=== PATIENT | male | born 1950 | race Caucasian/White ===

== ENCOUNTER → 2019-06-13 | Outpatient (CLI) | payer MEDICARE, OTHER | LOC: M.MRI 13:14 | DX: S83.282A Other tear of lateral meniscus, current injury, left knee, initial encounter (principal); M17.11 Unilateral primary osteoarthritis, right knee; M71.21 Synovial cyst of popliteal space [Baker], right knee; X58.XXXA Exposure to other specified factors, initial encounter; Y93.89 Activity, other specified; Y92.89 Other specified places as the place of occurrence of the external cause; Y99.8 Other external cause status ==

== ENCOUNTER 2019-07-16 09:58 | Inpatient (IN) | payer MEDICARE, OTHER ==
[2019-07-04 09:07] LABS: HEMATOCRIT 43.6 % (42.0-52.0); HEMOGLOBIN 15.1 gm/dL (14.0-18.0); MCH 31.9 pg (26.0-34.0); MCHC 34.7 g/dL (28.0-37.0); MCV 92.1 fL (80.0-100.0); MPV 9.2 fl. (7.2-11.1); RBC 4.74 mil/uL (4.50-6.00); RDW-CV 13.3 % (10.5-14.5); WBC 8.4 thou/uL (4.0-11.0)
[2019-07-04 09:09] LABS: URINE BILIRUBIN NEGATIVE (Negative); URINE BLOOD NEGATIVE (Negative); URINE CLARITY CLEAR; URINE COLOR YELLOW; URINE GLUCOSE-RANDOM NEGATIVE (Negative); URINE KETONES NEGATIVE (Negative); URINE PROTEIN NEGATIVE (Negative); URINE UROBILINOGEN 0.2 E.U./dl (0.2-1.0)
[2019-07-04 09:14] LABS: URINE LEUKOCYTES-REFLEX 2+ (Negative); URINE NITRITE-REFLEX POSITIVE (Negative)
[2019-07-04 09:22] LABS: ALBUMIN 3.7 g/dL (3.4-5.0); CALCIUM 8.9 mg/dL (8.5-10.1); CREATININE 1.2 mg/dL (0.6-1.3); PROTIME 10.5 Seconds (9.20-11.50); TOTAL BILIRUBIN 0.6 mg/dL (<0.1-1.0); TOTAL PROTEIN 7.6 g/dL (6.4-8.2)
[2019-07-04 09:23] LABS: BACTERIA-REFLEX >30 Many /HPF (None Seen); CASTS None Seen /LPF (None Seen); CRYSTALS None Seen /LPF (None Seen); MUCUS 0-3 Light strn/LPF (None Seen); SQUAMOUS 0-3 Few /LPF (0-3); URINE RBC 0-2 Rare /HPF (0-2)
--- NOTE | 2019-07-04 12:38 | EKG ---
[place] [address] ELECTROCARDIOGRAM REPORT Name: ANIBAL CHAIDEZ Room: [facility]#: [id number] Admission: Attend Phys: Adrian Best Discharge: Date of : 46 Report #: [id number] THIS REPORT FOR: //name// [facility] Test Date: 2019-07-04 Test Time: 09:38:27 Pat Name: ANIBAL CHAIDEZ Department: Room: Gender: M Regulatory Compliance Director: : 1950 Requested By: Roney Limon Order Number: [id number] Reading MD: Rudi Avila Measurements Intervals [place] Rate: 56 P: -8 OK: 204 QRS: -43 QRSD: 94 T: 48 QT: 428 QTc: 414 Interpretive Statements Sinus rhythm Left anterior fascicular block No previous ECG available for comparison Electronically Signed On 07-04-2019 12:37:53 [employer]INE[employer] by Rudi Avila [email or web address] <ELECTRONICALLY SIGNED> By: Rudi Avila MD, [facility] 07/04/19 1237 [id number] [id number] Rudi Avila MD, FACC /EPI
[~2019-07-16] VITALS: Ht 185.4 cm; Wt 114.8 kg
[~2019-07-16 09:58] MED LIST: AMLODIPINE-BEN1 EAC2 PO; ASPIR 8181 M1 PO; INDOMETHACIN 5050 M1 PO; ROSUVASTATIN CA20 MG PO; ZANTAC 150MG T150 M1 PO
[2019-07-16 11:13] VITALS: BP 144/75
--- NOTE | 2019-07-16 11:20 | NUR ---
Pt arrived to pre-op and told nurse of having new flair up of gout in Right ankle. He is scheduled for right total knee surg. Great toe is red and swollen, and swelling over right inner ankle with redness. Pt has low grade temp of 99.2. Consulted with Surg DR. Limon. came and assesed area and is okay to preceed with surgery.
[2019-07-16 17:20] VITALS: BP 133/60
[2019-07-16 21:00] VITALS: BP 122/58
--- NOTE | 2019-07-16 21:55 | NUR ---
PATIENT ARRIVED FROM SURGERY AT 1700. HE HAD A RIGHT TOTAL KNEE DONE AND IS AT BEDSIDE. HE IS ALERT AND ORIENTED X4 AND IS CURRENTLY ON BEDREST. ZOFRAN WAS GIVEN FOR N/V POSTOP. HE IS ADVANCING HIS DIET AND TOLERATING WELL. ADMISSION WAS COMPLETED. PATIENT NEEDS ARE MET DURING ROUNDING AND PAIN IS DENIED. WHAT TO EXPECT IN THE HOURS/DAYS AHEAD WAS DISCUSSED. POLAR PACK IS FULL, DRESSING IS C/D/I AND CORAL HOSE ARE IN PLACE. DRAIN IS IN PLACE. WILL CONTINUE TO MONITOR.
[2019-07-17] VITALS: BP 123/65
--- NOTE | 2019-07-17 05:30 | NUR ---
PT A&O X4, VSS ON 2L. MEDS GIVEN ORDERED. PAIN CONTROLLED WITH OXY IR. DENIED N/V. DRESSING TO RT KNEE C/D/I. HEMOVAC IN PLACE WITH SANGUINEOUS DRAINAGE. PT UP TO THE BATHROOM TO VOID WITH MINIMUM ASSIST. HOURLY ROUNDING COMPLETED. POLAR CARE IN PLACE. WILL CONTINUE TO MONITOR.
[2019-07-17 05:32] LABS: HEMATOCRIT 36.2 % (42.0-52.0); HEMOGLOBIN 12.4 gm/dL (14.0-18.0)
[2019-07-17 08:00] VITALS: BP 124/66
[2019-07-17] MEDS ORDERED: COLACE 100 MG100 MG PO (08:32)
[2019-07-17] MEDS ORDERED: XARELTO10 MG PO (08:32)
[2019-07-17] MEDS ORDERED: PERCOCET 5-3251 EACH PO (08:32)
--- NOTE | 2019-07-17 11:30 | NUR ---
PATIENT'S HEMOVAC DISCONTINUED WITH TIP INTACT. DRESSING APPLIED RIGHT KNEE. AMANDA WRAP REMOVED, MEPILEX INTACT TO RIGHT KNEE. CORAL HOSE APPLIED TO RIGHT LEG. UP IN CHAIR AT PRESENT TIME. CALL LIGHT WITHIN REACH. WILL CONTINUE WITH PLAN OF CARE.
[2019-07-17 13:19] VITALS: BP 124/66
--- NOTE | 2019-07-17 13:45 | NUR ---
SPOKE WITH PT.AND . PT.WAITING FOR P.T. HE SAID WILL BE WITH HIM AT DISCHARGE. HE HAS A WALKER IN ROOM TO USE AT HOME. HE SAID ALREADY PICKED UP HIS XARELTO AND PAIN MEDS YESTERDAY. HE SAID XARELTO WAS PRETTY EXPENSIVE BUT THEY COULD AFFORD IT. HE WOULD LIKE TO DO HH FOR 2 WEEKS AND THEN OUTPT.THERAPY. HE CHOSE [facility]. FAXED REFERRAL AND DISCHARGE ORDERS TO [facility]. HEARD BACK FROM [facility],WHO STATED THEY WILL ACCEPT ON SERVICE.
--- NOTE | 2019-07-17 15:35 | NUR ---
PATIENT GIVEN DISCHARGE INSTRUCTIONS. PATIENT AND SPOUSE VERBALIZED UNDERSTANDING IN REGARDS TO FOLLOW UP APPOINTMENTS, NEW MEDICATIONS, AND INCISION CARE. PATIENT DISCHARGED TO HOME WITH ALL BELONGINGS, CPM, AND POLAR PACK SENT WITH PATIENT. ERIC ESCORTED OFF NURSING UNIT WITH NURSING STAFF. DISCHARGED TO HOME WITH VIA PRIVATE VEHICLE.
--- NOTE | 2019-07-17 16:52 | NUR ---
POST-DISCHARGE, O.T. RECIEVED EVAL AND TX ORDERS. DEFER TO P.T. AT THIS TIME. PLEASE ORDER FURTHER O.T. SERVICES IF NEEDED.
--- NOTE | 2019-07-17 17:03 | NUR ---
I have reviewed the documentation by BRADY ZAFAR from 07/17/19 to 07/17/19 and I concur with it. OUMAR CARTER
--- NOTE | 2019-07-17 23:14 | OP ---
[facility] [address] [place] [address] OPERATIVE REPORT Name: ANIBAL CHAIDEZ Room: [address]#: [id number] Admission: 07/16/19 Attend Phys: Adrian Best Discharge: 07/17/19 Date of : 46 Report #: [id number] THIS REPORT FOR: //name// CC: Chuckie Vieira DATE OF SERVICE: 07/16/2019 PREOPERATIVE DIAGNOSIS: Right knee osteoarthritis. POSTOPERATIVE DIAGNOSIS: Right knee osteoarthritis. PROCEDURE: Right total knee arthroplasty. SURGEON: Roney Limon II, DO. WORKERS' COMPENSATION MEDIATOR: JOSHUA Lopez. ANESTHESIA: General endotracheal. ESTIMATED BLOOD LOSS: 50 mL. ANTIBIOTICS: Ancef preoperatively. DRAINS: Hemovac. COMPLICATIONS: None. CONDITION OF THE PATIENT: Stable to recovery room. IMPLANTS: Listed in operative record and progress note. BRIEF HISTORY: The patient was seen in the preoperative area. The patient has been off of his anti-inflammatories for approximately 10 days and did have a slight flare of his gout in the operative leg down by the ankle joint. He states this is normal for him. There was no evidence of infection or cellulitis and the patient wished to proceed. He was discussed and warned that this may interfere with some of his postoperative recovery as well as his ambulation postoperatively. The patient assumes all these risks and wishes to proceed. DESCRIPTION OF PROCEDURE: The patient was taken to the operative suite and placed supine on the operating table in appropriate anesthesia. A well-padded tourniquet applied to upper thigh, which was inflated to 300 mmHg after gravity exsanguination. The operative knee was sterilely prepped and draped. Surgery began by midline incision. This was carried down [place] [address] OPERATIVE REPORT Name: ANIBAL CHAIDEZ Room: [address]#: [id number] Admission: 07/16/19 Attend Phys: Adrian Best Discharge: 07/17/19 Date of : 46 Report #: [id number] A medial parapatellar arthrotomy was performed and carried down to bone. The patella was then everted and excess soft tissues were removed from around the femur. Femoral cutting block was then applied, checked with a drop jose for rotational alignment, pinned in appropriate position and appropriate cuts were made. A 4-in-1 cutting block was then applied, checked for rotational alignment, pinned in appropriate position and appropriate cuts were made. The tibia was exposed. Excess meniscus was removed. Retractor was placed on collateral ligaments. The tibial cutting block was then applied, pinned in appropriate position, checked with drop jose for rotational alignment and slope and appropriate cut was made. The tibial bone was removed. Tibial base plate was then applied, checked for rotational alignment, the drop jose and pinned in appropriate position. Femur was then applied and box cut was reamed. This was then trialed with appropriate spacer, which showed excellent fit and fill and excellent stability of the knee through all range of motion. The patella was reamed in appropriate fashion and sized to appropriate size. Three peg holes were drilled and it was then trialed and showed excellent flexion, extension, excellent tracking of the patella within the groove. These trials were removed. The tibia was punched in appropriate fashion. Bone ends were cleansed with Pulsavac irrigation and cement was mixed and applied to final implants. These were then malleted into position and held the knee in extension and compressed to allow cement to cure. After it cured, excess was removed using a freer and osteotome. Wound was then copiously irrigated and the final spacer was malleted into position. The tourniquet was deflated. Hemostasis was maintained with electrocautery. Pain cocktail was injected. PRP gel sprayed throughout internal aspects of the knee. Medium Hemovac drain was applied. The capsule was closed with #2 FiberWire and #1 Vicryl in [id number] fashion. Skin was closed with 2-0 Vicryl and running 3-0 Monocryl. Dermabond and sterile dressing applied. Jose G wrap and PolarCare applied. The patient transported to recovery room in stable condition. Counts were correct throughout the procedure. <ELECTRONICALLY SIGNED> By: Roney Limon II, DO 07/17/19 2314 [id number] Limon II, DO /nt
== END 2019-07-17 15:35 | disposition home health service (06) | DRG 470 ==
LOC: M.ORTHSURG 09:58 → M.TBA 09:58 → M.ORTHSURG 10:02 → M.PRE 10:13 → M.ORTHSURG 17:09
PROVIDERS: Orthopaedic Surgery; ADMIT Internal Medicine
PROC: 0SRC0J9 Replacement of Right Knee Joint with Synthetic Substitute, Cemented, Open Approach (ICD-10-PCS; principal; 2019-07-16)
DX: M17.11 Unilateral primary osteoarthritis, right knee (principal); I10 Essential (primary) hypertension; E78.00 Pure hypercholesterolemia, unspecified; M10.9 Gout, unspecified; E66.9 Obesity, unspecified; Z68.33 Body mass index [BMI] 33.0-33.9, adult; Z98.42 Cataract extraction status, left eye; Z87.891 Personal history of nicotine dependence